=== PATIENT | male | born 1985 | race African-American/Black ===

== ENCOUNTER 2024-06-13 19:45 | Inpatient (IN) ==
[2024-06-13] MEDS ORDERED: Lorazepam PYXIS KEY PRN (19:59)
[2024-06-13] MEDS ORDERED: Haloperidol 5 mg/ml SDV IV/IM 5 MG/ML AMP ONE (20:00)
[2024-06-13] MEDS ORDERED: LORazepam 2 mg VIAL 1 ml ONE (20:00)
[2024-06-13] MEDS: LORazepam 2 mg VIAL 1 ml IM ONE (20:10)
[2024-06-13] MEDS: Haloperidol 5 mg/ml SDV IV/IM 5 MG/ML AMP IM ONE (20:10)
[2024-06-13] MEDS ORDERED: Ziprasidone IM 20 mg VIAL 1 ml VIAL ONE (20:21)
[2024-06-13] MEDS: Ziprasidone IM 20 mg VIAL 1 ml VIAL IM ONE (20:28)
[2024-06-13] MEDS: OLANZapine 5 mg TAB *ODT PO ONE (20:33)
[2024-06-13 22:52] LABS: ABS Lymphocytes 1.4 10^3/uL (1.0-4.8); ABS Monocytes 0.4 10^3/uL (0.0-1.1); ABS Neutrophils 2.4 10^3/uL (1.5-7.6); ABS Nucleated RBC 0.01 10^3/ul; Eosinophil % 0.9 %; Hematocrit 44.2 % (38-53); Hemoglobin 15.8 g/dL (13.2-16.3); Lymphocyte % 33.4 %; Mean Corpuscular Hemoglobin 33.8 pg (27-33); Mean Corpuscular Hgb Conc 35.8 g/dL (31-36); Mean Corpuscular Volume 94.3 fL (80-97); Mean Platelet Volume 9.9 fL (7.5-11.2); Nucleated Red Blood Cells % 0.2 %/100WBC (0.0-0.8); Platelet Count 171 10^3/uL (150-450); Red Blood Count 4.69 10^6/uL (4.06-5.63); Red Cell Distribution Width 14.7 % (12-17); White Blood Count 4.3 10^3/uL (3.6-10.2)
[2024-06-13 23:57] LABS: ALT 90 U/L (7-52); AST 43 U/L (13-39); Acetaminophen < 15 mcg/mL; Albumin 4.5 g/dL (3.2-5.2); Albumin/Globulin Ratio 1.5 (1-3); Alcohol, S < 13 mg/dL (<13); Alkaline Phosphatase 96 U/L (35-149); Anion Gap 8 mmol/L (2-16); Blood Urea Nitrogen 15 mg/dL (6-24); CO2 Carbon Dioxide 26 mmol/L (22-32); Calcium 9.5 mg/dL (8.6-10.3); Chloride 103 mmol/L (101-111); Creatinine, Serum 1.15 mg/dL (0.67-1.17); Globulin 3.1 g/dL (2-4); Glucose 114 mg/dL (70-100); Potassium 4.6 mmol/L (3.5-5.0); Salicylate < 2.50 mg/dL (<30); Sodium 137 mmol/L (135-145); Total Bilirubin 0.3 mg/dL (0.2-1.0); Total Protein 7.6 g/dL (6.4-8.9); eGFR CKD-EPI 83.5 (>60)
[2024-06-14 00:10] LABS: TSH Ultra Thyroid Stim Horm 4.27 mcIU/mL (0.34-5.60)
[2024-06-14] MEDS ORDERED: Al Hydrox/Mg Hydrox/Simet LIQ 30 ML UDC PO PRN (06:23)
[2024-06-14] MEDS ORDERED: LORazepam 2 mg VIAL 1 ml ONE ×2 (08:16→09:10)
[2024-06-14] MEDS ORDERED: Haloperidol 5 mg/ml SDV IV/IM 5 MG/ML AMP ONE (09:10)
[2024-06-14] MEDS ORDERED: Midazolam 5 mg/ml concentrated 5 mg/ml 1 ml VIAL ONE (09:19)
[2024-06-14] MEDS: Midazolam 5 mg/5 ml VIAL 1 mg/ml 5 ml VIAL (5 mg) ONE (09:21)
[2024-06-14] MEDS ORDERED: Lorazepam PYXIS KEY PRN (16:50)
[2024-06-14 18:25] VITALS: BP 161/99
[2024-06-15] MEDS: Vitamin THERAPEUTIC TAB PO SCH (08:53)
[2024-06-15 12:06] LABS: Urine Benzodiazepine Screen Presumptive Positive (None Detect); Urine Cannabinoids Screen Presumptive Positive (None Detect); Urine Opiates Screen None Detected (None Detect)
[2024-06-15 12:33] LABS: Urine Appearance Clear; Urine Bilirubin Negative (Negative); Urine Blood Negative (Negative); Urine Color Yellow; Urine Glucose Negative (Negative); Urine Ketones Trace (Negative); Urine Nitrite Negative (Negative); Urine Protein Trace (Negative); Urine Specific Gravity 1.027 (1.002-1.030); Urine Urobilinogen Negative (Negative)
[2024-06-15] MEDS: LORazepam 2 MG/ML 1 mL Syringe ONE ×2 (12:42→12:43)
[2024-06-15] MEDS: chlorproMAZINE 25 MG/ML 2 ML (50 MG) IM ONE ×2 (12:45→12:46)
[2024-06-15] MEDS: LORazepam 2 MG/ML 1 mL Syringe IM ONE (12:46)
== END 2024-06-15 16:15 | disposition home or self-care (01) | DRG 776 ==
LOC: ED 19:45 → EDHOLD 06-14 06:20 → BSU 06-14 09:49
PROVIDERS: ADMIT Psychiatry & Neurology Psychiatry; ATTEND Psychiatry & Neurology Psychiatry